=== PATIENT | male | born 1995 | race Caucasian/White ===

== ENCOUNTER 2020-11-21 16:18 | Emergency (ER) | payer BC, OTHER ==
[2020-11-21 16:49] VITALS: BP 131/86; PULSE 82; RESP 18; TEMP 98.7
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
--- NOTE | 2020-11-21 17:47 | XR ---
EXAMINATION TYPE: XR calcaneus 2V BILATERAL DATE OF EXAM: 11/21/2020 COMPARISON: NONE HISTORY: Pain TECHNIQUE: 4 views FINDINGS: I see no fracture nor dislocation. Joint spaces are normal. There are no pathologic calcifi cations. IMPRESSION: Negative bilateral calcaneus exam.
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
== END 2020-11-21 18:27 | disposition home or self-care (01) ==
LOC: EC 16:18
DX: S80.11XA Contusion of right lower leg, initial encounter (principal); S90.32XA Contusion of left foot, initial encounter; M79.671 Pain in right foot; F17.200 Nicotine dependence, unspecified, uncomplicated; F12.90 Cannabis use, unspecified, uncomplicated; V29.9XXA Motorcycle rider (driver) (passenger) injured in unspecified traffic accident, initial encounter; Y92.410 Unspecified street and highway as the place of occurrence of the external cause
CPT/HCPCS: 71046; 72170; 99284